=== PATIENT | female | born 1940 | race Caucasian/White ===

== ENCOUNTER 2020-03-10 12:30 | Outpatient (CLI) | payer MEDICARE, SELFPAY | END 2020-03-10 12:31 | disposition home or self-care (01) | PROVIDERS: PCP Family Medicine; Visit Provider Specialist | DX: C44.622 Squamous cell carcinoma of skin of right upper limb, including shoulder (principal) | CPT/HCPCS: 88305 ==

== ENCOUNTER 2020-05-12 12:21 | Outpatient (CLI) | payer MEDICARE, SELFPAY | END 2020-05-12 12:22 | disposition home or self-care (01) | PROVIDERS: PCP Family Medicine; Visit Provider Specialist | DX: C51.9 Malignant neoplasm of vulva, unspecified (principal) | CPT/HCPCS: 88305; 88307; 88311 ==

== ENCOUNTER 2020-11-10 10:44 | Outpatient (CLI) | payer MEDICARE, SELFPAY | END 2020-11-10 10:45 | disposition home or self-care (01) | LOC: CHSLAB 10:47 | PROVIDERS: PCP Family Medicine; Visit Provider Specialist | DX: C44.529 Squamous cell carcinoma of skin of other part of trunk (principal) | CPT/HCPCS: 88305 ==

== ENCOUNTER 2021-06-22 14:12 | Outpatient (CLI) | payer MEDICARE, SELFPAY | END 2021-06-22 14:13 | disposition home or self-care (01) | PROVIDERS: PCP Family Medicine; Visit Provider Specialist | DX: C44.529 Squamous cell carcinoma of skin of other part of trunk (principal) | CPT/HCPCS: 88305 ==

== ENCOUNTER 2022-06-07 09:44 | Outpatient (CLI) | payer MEDICARE, SELFPAY | END 2022-06-07 09:45 | disposition home or self-care (01) | PROVIDERS: PCP Family Medicine; Visit Provider Specialist | DX: C44.619 Basal cell carcinoma of skin of left upper limb, including shoulder (principal) | CPT/HCPCS: 88305 ==

== ENCOUNTER 2023-09-26 14:22 | Outpatient (CLI) | payer MEDICARE, SELFPAY | END 2023-09-26 14:23 | disposition home or self-care (01) | LOC: CHSLAB 14:30 | PROVIDERS: PCP Family Medicine; Visit Provider Specialist | DX: D48.5 Neoplasm of uncertain behavior of skin (principal) | CPT/HCPCS: 88305 ==

== ENCOUNTER 2024-03-12 13:13 | Outpatient (CLI) | payer MEDICARE, SELFPAY | END 2024-03-12 13:14 | disposition home or self-care (01) | LOC: CHSLAB 13:16 | PROVIDERS: PCP Family Medicine; Visit Provider Specialist | DX: C44.729 Squamous cell carcinoma of skin of left lower limb, including hip (principal) | CPT/HCPCS: 88305 ==